=== PATIENT | male | born 2000 | race Caucasian/White ===

== ENCOUNTER 2018-06-19 10:01 | Emergency (ER) | payer OTHER | END 2018-06-19 11:01 | disposition home or self-care (01) | LOC: FTE 10:01 | DX: S16.1XXA Strain of muscle, fascia and tendon at neck level, initial encounter (principal); R40.2412 Glasgow coma scale score 13-15, at arrival to emergency department; X50.0XXA Overexertion from strenuous movement or load, initial encounter; Y92.89 Other specified places as the place of occurrence of the external cause | CPT/HCPCS: 99282; Z7502 ==